=== PATIENT | male | born 1990 | race Two or more races ===

== ENCOUNTER 2017-10-29 09:29 | Emergency (ER) | payer SELFPAY ==
[~2017-10-29] VITALS: Ht 165.1 cm; Wt 114.0 kg
[2017-10-29] MEDS ORDERED: TRAMADOL 50MG TABLET PO ONE (13:30)
[2017-10-29 15:25] LABS: BASOPHILS % 0.9 % (0.0-2.0); EOSINOPHILS % 2.8 % (0.0-5.0); HEMOGLOBIN. 16.3 g/dL (14.0-18.0); LYMPHOCYTES % 26.5 % (20.0-50.0); MEAN CORPUSCULAR HEMOGLOBIN 31.9 pg (28.0-32.0); MEAN CORPUSCULAR VOLUME 90.1 fL (80.0-94.0); MEAN PLATELET VOLUME 8.6 fl (7.4-10.4); MONOCYTES % 7.1 % (2.0-8.0); NEUTROPHILS % 62.7 % (40.0-76.0); PLATELET 278 x1000/uL (130-400); RED CELL DISTRIBUTION WIDTH 13.8 % (11.6-14.6)
[2017-10-29 15:27] LABS: CHLORIDE 104 mEq/L (98-107)
[2017-10-29] MEDS ORDERED: IBUPROFEN 600MG TABLET PO ONE (15:45)
[2017-10-29 16:55] VITALS: BP 132/74
== END 2017-10-29 17:08 | disposition home or self-care (01) ==
LOC: ER 10:45
DX: K57.90 Diverticulosis of intestine, part unspecified, without perforation or abscess without bleeding (principal); K76.0 Fatty (change of) liver, not elsewhere classified; F12.10 Cannabis abuse, uncomplicated; Z85.47 Personal history of malignant neoplasm of testis; Z90.79 Acquired absence of other genital organ(s)
CPT/HCPCS: 36415; 74176; 76870; 80048; 85025; 93976; 99285

== ENCOUNTER 2018-04-22 11:49 | Emergency (ER) | payer SELFPAY ==
[~2018-04-22] VITALS: Ht 165.1 cm; Wt 114.0 kg
[2018-04-22] MEDS ORDERED: KETOROLAC 30MG/ML VIAL IM ONE (12:45)
[2018-04-22 13:22] LABS: CHLORIDE 105 mEq/L (98-107)
[2018-04-22 13:27] LABS: BASOPHILS % 0.4 % (0.0-2.0); EOSINOPHILS % 2.3 % (0.0-5.0); HEMATOCRIT. 46.5 % (42.0-52.0); HEMOGLOBIN. 16.5 g/dL (14.0-18.0); LYMPHOCYTES % 27.8 % (20.0-50.0); MEAN CORPUSCULAR HEMOGLOBIN 31.7 pg (28.0-32.0); MEAN CORPUSCULAR VOLUME 89.5 fL (80.0-94.0); MEAN PLATELET VOLUME 8.6 fl (7.4-10.4); MONOCYTES % 7.5 % (2.0-8.0); PLATELET 288 x1000/uL (130-400); RED CELL DISTRIBUTION WIDTH 13.9 % (11.6-14.6)
[2018-04-22 13:35] VITALS: BP 168/87
== END 2018-04-22 14:22 | disposition home or self-care (01) ==
LOC: ER 11:49
DX: R51 Headache (principal); R03.0 Elevated blood-pressure reading, without diagnosis of hypertension
CPT/HCPCS: 36415; 70450; 80048; 85025; 96372; 99285; J1885

== ENCOUNTER 2019-08-19 16:53 | Emergency (ER) | payer SELFPAY ==
[~2019-08-19] VITALS: Ht 165.1 cm; Wt 118.0 kg
[2019-08-19 17:30] VITALS: BP 151/83
== END 2019-08-19 20:20 | disposition left against medical advice (07) ==
LOC: ER 16:53
DX: R07.9 Chest pain, unspecified (principal); R06.02 Shortness of breath; Z53.21 Procedure and treatment not carried out due to patient leaving prior to being seen by health care provider

== ENCOUNTER 2021-08-08 03:57 | Emergency (ER) | payer SELFPAY ==
[~2021-08-08] VITALS: Ht 165.1 cm; Wt 125.0 kg
[2021-08-08 06:45] VITALS: BP 126/80
== END 2021-08-08 06:49 | disposition home or self-care (01) ==
LOC: ER 03:57
DX: T40.5X1A Poisoning by cocaine, accidental (unintentional), initial encounter (principal); T51.0X1A Toxic effect of ethanol, accidental (unintentional), initial encounter; R42 Dizziness and giddiness; R00.2 Palpitations; F14.188 Cocaine abuse with other cocaine-induced disorder; F10.188 Alcohol abuse with other alcohol-induced disorder; Y90.9 Presence of alcohol in blood, level not specified; Y92.89 Other specified places as the place of occurrence of the external cause
CPT/HCPCS: 93005; 99283

== ENCOUNTER 2022-10-09 14:35 | Emergency (ER) | payer BC ==
[~2022-10-09] VITALS: Ht 165.1 cm; Wt 91.0 kg
[2022-10-09 15:14] LABS: BASOPHILS % 0.4 % (0.0-2.0); EOSINOPHILS % 2.7 % (0.0-5.0); HEMATOCRIT. 45.2 % (42.0-52.0); LYMPHOCYTES % 24.8 % (20.0-50.0); MEAN CORPUSCULAR HEMOGLOBIN 30.9 pg (28.0-32.0); MEAN CORPUSCULAR VOLUME 87.1 fL (80.0-94.0); MEAN PLATELET VOLUME 8.5 fl (7.4-10.4); MONOCYTES % 8.8 % (2.0-8.0); NEUTROPHILS % 63.3 % (40.0-76.0); PLATELET 258 x1000/uL (130-400); RED BLOOD CELL COUNT 5.19 mill/uL (4.7-6.1)
[2022-10-09 15:21] LABS: CHLORIDE 103 mEq/L (98-107)
[2022-10-09] MEDS ORDERED: PREDNISONE 20MG TABLET PO ONE (15:45)
[2022-10-09] MEDS ORDERED: IPRATROPIUM/ALBUTEROL 0.5-3(2.5)MG/3ML NEB HHN ONE (15:45)
[2022-10-09] MEDS ORDERED: ALBU6.7H3 INH (17:20)
[2022-10-09] MEDS ORDERED: P50 MT (17:20)
[2022-10-09 17:28] VITALS: BP 131/81
== END 2022-10-09 18:10 | disposition home or self-care (01) ==
LOC: ER 16:06
DX: I10 Essential (primary) hypertension (principal); R06.02 Shortness of breath; R06.2 Wheezing; Z20.822 Contact with and (suspected) exposure to COVID-19
CPT/HCPCS: 36415; 71045; 80053; 85025; 87426; 87804; 93005; 94640; 99285; C9803; J7512; Z7610